=== PATIENT | male | born 1965 | race Two or more races ===

== ENCOUNTER 2023-01-16 20:52 | Emergency (ER) | payer MEDICAID, OTHER ==
[~2023-01-16] VITALS: Ht 170.2 cm; Wt 81.8 kg
[2023-01-16 20:52] VITALS: BP 0/0; PULSE 0; RESP 0; TEMP 97.5; O2SAT 69
== END 2023-01-17 03:00 ==
LOC: ER 20:52 → EDBD 21:00 → ER 01-17 03:00
DX: I46.9 Cardiac arrest, cause unspecified (principal); I47.20 Ventricular tachycardia, unspecified; I10 Essential (primary) hypertension
CPT/HCPCS: 31500; 92950